=== PATIENT | female | born 1945 | race Caucasian/White ===

== ENCOUNTER 2024-03-04 22:36 | Emergency (ER) | payer MEDICARE, SELFPAY ==
[2024-03-04 22:37] VITALS: BP 171/76; PULSE 102; RESP 16; TEMP 36.3; O2SAT 100
[2024-03-04 23:14] LABS: Basophils Absolute Auto 0.1 K/mm3 (0.0-0.1); Basophils Percent Auto 0.5 % (0.2-1.2); Eosinophils Absolute Auto 0.2 K/mm3 (0-0.3); Eosinophils Percent Auto 1.4 % (0-4.4); Hematocrit 39.4 % (37.0-47.0); Hemoglobin 12.2 g/dL (12.0-15.0); Immature Granulocyte Absolute 0.04 K/mm3 (0.00-0.031); Immature Granulocyte Percent A 0.3 % (0-0.5); Lymphocytes Absolute Auto 5.63 K/mm3 (0.9-3.2); Lymphocytes Percent Auto 42.9 % (18.3-44.2); Mean Corpuscular Hemoglobin 28.1 pg (26-34); Mean Corpuscular Volume 90.8 fl (80-100); Mean Platelet Volume 10.9 fl (7.4-10.4); Monocytes Percent Auto 7.4 % (2.6-8.5); Neutrophils Absolute Auto 6.2 K/mm3 (1.3-6.7); Neutrophils Percent Auto 47.5 % (45.5-73.1); Platelet Count Result 229 k/mm3 (150-375); Red Blood Count 4.34 M/mm3 (4.2-5.4); Red Cell Distribution Width 14.3 % (11.5-14.5); White Blood Count 13.1 K/mm3 (4.5-10.0)
[2024-03-04 23:24] LABS: Alanine Aminotransferase 16 U/L (6-35); Albumin Level 4.3 g/dL (3.5-5.1); Alkaline Phosphatase 134 U/L (38-126); Anion Gap 5 mmol/L (4-12); Aspartate Amino Transferase 18 U/L (14-36); Bilirubin,Total 0.9 mg/dL (0.2-1.3); Blood Urea Nitrogen 21 mg/dL (7-17); Calcium 9.5 mg/dL (8.4-10.2); Carbon Dioxide 30 mmol/L (22-30); Chloride 103 mmol/L (98-107); Estimated CRCL calculation 43 ml/min; Estimated Glomerular Filt Rate 54; Glucose 107 mg/dL (65-110); Sodium 138 mmol/L (137-145)
[2024-03-04 23:25] LABS: INR 1.6; Prothrombin Time 20.2 Seconds (11.1-14.7)
[2024-03-04 23:26] LABS: Partial Thromboplastin Time 38.5 Seconds (22.3-36.8)
[2024-03-04 23:54] VITALS: BP 144/81; PULSE 53; TEMP 36.5; O2SAT 100
[2024-03-05 00:26] LABS: Bacteria Urine 3+ /hpf; Bilirubin Urine Negative (Negative); Blood Urine 3+ (Negative); Color Urine Orange (Yellow); Glucose Urine UA Negative (Negative); Ketones Urine Negative (Negative); Leukocyte Esterase Ur 3+ LEU/UL (Negative); Need Manual Microscopic Reviewed; Nitrate Urine Negative (Negative); Non Pathogenic Casts 0-2; Protein Urine 2+ mg/dL (Negative); RBC Urine >100 /hpf (0-2); Specific Grav Ur 1.015 (1.001-1.035); Squamous Epithelial Cell Urine None Seen /hpf (Few); WBC Urine >100 /hpf (0-3)
[2024-03-05 00:29] LABS: Appearance Urine Cloudy (Clear)
[2024-03-05 00:30] LABS: Add Urine Microscopic? YES
--- NOTE | 2024-03-05 03:19 | ED.GENADULT ---
HPI - General Adult General Chief complaint: Urogenital-Female Stated complaint: hematuria Time Seen by Provider: 03/05/24 01:50 History of Present Illness HPI narrative: This is a 78-year-old female presenting with urinary symptoms. Patient said earlier today she started developed pain on urination and noticed that she was having blood in her urine. She was concerned that she may have a UTI. She denies fevers chills nausea vomiting diarrhea or flank pain. She does take Xarelto for atrial fibrillation. Patient has not had any issue initiating a stream. No suprapubic fullness. Per the triage notes there was concern for rectal bleeding but when I spoke to the patient she says she is not concerned about rectal bleeding all. She states the blood is coming from her urine. Related Data Home Medications Medication Instructions Recorded Confirmed atorvastatin 80 mg tablet 80 mg PO DAILY 03/29/22 09/20/23 furosemide 20 mg tablet 10 mg PO QAM 03/29/22 09/20/23 losartan 50 mg tablet 50 mg PO DAILY 03/29/22 09/20/23 oxybutynin chloride 10 mg 10 mg PO DAILY 03/29/22 09/20/23 tablet,extended release 24 hr rivaroxaban 20 mg tablet (Xarelto) 20 mg PO DAILY 03/29/22 09/20/23 metoprolol tartrate 25 mg tablet 25 mg PO BID 09/19/23 09/20/23 Allergies Allergy/AdvReac Type Severity Reaction Status Date / Time Sulfa (Sulfonamide Allergy Unknown RASH AND Verified 09/19/23 13:49 Antibiotics) HIVES [facility] Family History Family History Father Diabetes mellitus Hypertension Mother Depression Hypertension Sibling Diabetes mellitus Social History Social History Smoking status: Never smoker Alcohol intake: never Substance use: never Exam Narrative: APPEARANCE: No apparent distress. Head: atraumatic. EYES: EOMI, NOSE: Atraumatic NECK: Trachea midline RESPIRATORY: No increased rate of breathing CARDIOVASCULAR: RRR, ABDOMINAL: Non-distended Soft nontender no guarding or rebound no CVA tenderness, rectal exam showed brown stool with no evidence of bleeding, melena Excedrin. MUSCULOSKELETAl: No obvious deformities NEURO: Alert. Moving 4/4 extremities SKIN:: Warm, dry. Normal color PSYCHIATRIC: Normal affect Course Vital Signs Vital signs: Vital Signs Temperature 97.4 F L 03/04/24 22:37 Pulse Rate 102 H 03/04/24 22:37 Respiratory Rate 16 03/04/24 22:37 Blood Pressure 171/76 H 03/04/24 22:37 Pulse Oximetry 100 03/04/24 22:37 Oxygen Delivery Room Air 03/04/24 22:37 Temperature 97.7 F 03/04/24 23:54 Pulse Rate 53 L 03/04/24 23:54 Respiratory Rate 16 03/04/24 22:37 Blood Pressure 144/81 H 03/04/24 23:54 Pulse Oximetry 100 03/04/24 23:54 Oxygen Delivery Room Air 03/04/24 22:37 Medical Decision Making MDM Narrative Medical decision making narrative: -Course: 78-year-old female presenting with urinary symptoms and hematuria. Urine consistent with infection. No evidence of urinary retention/ pyelonephritis. Rectal exam did not have any evidence of bleeding. patient given dose of ceftriaxone here in the emergency department. We discussed admission versus discharge the patient is comfortable going home and taking antibiotics. Discharged on cefdinir. Given return precautions for worsening infection and urinary retention. Primary care follow-up -DDX includes but is not limited to: UTI, pyelo, hematuria, rectal bleeding -Co-morbidities complicating care: AFib on anticoagulation -Independent interpretation of studies: white count 13.1. Hemoglobin 12.2. Urine indicative infection. Culture sent. -Interventions: 1 g ceftriaxone -Shared decision making / Disposition: discharge -RX cefdinir 300 mg bid x 7 days Vital Signs Vital Signs: Vital Signs Temperature 97.4 F L 03/04/24 22:37 Pulse Rate 102 H 03/04/24 22:37 Respiratory Rate 16
[2024-03-05] MEDS: cefTRIAXone 1 GM VIAL IM (03:42)
[2024-03-05 03:49] VITALS: BP 128/56; PULSE 64; RESP 15; O2SAT 100
== END 2024-03-05 03:49 | disposition home or self-care (01) ==
PROVIDERS: Emergency Provider Emergency Medicine; PCP Internal Medicine
DX: N39.0 Urinary tract infection, site not specified (principal); I48.91 Unspecified atrial fibrillation; Z79.01 Long term (current) use of anticoagulants
CPT/HCPCS: 36415; 80053; 81001; 85025; 85610; 85730; 86850; 86900; 86901; 87077; 87086; 87088; 87186; 96372; 99283; J0696

== ENCOUNTER 2024-06-03 16:32 | Emergency (ER) | payer MEDICARE, SELFPAY ==
[2024-06-03] VITALS (37 sets, daily range): BP systolic 103–128; BP diastolic 52–103; PULSE 79–121; RESP 9–53; TEMP 36.6; O2SAT 83–100
--- NOTE | ~2024-06-03 | CT_ITS ---
EXAMINATION: CT brain wo con DATE: 06/03/2024 19:00 INDICATION: Altered mental status . TECHNIQUE: Computed tomography (CT) of the head was performed without intravenous contrast. The mA wa s adjusted according to patient size. Iterative reconstruction technique was employed. The dose-lengt h product was 529.67 mGy-cm. COMPARISON: None. FINDINGS: 5.6 x 4.1 x 2.4 cm hyperdense intracranial hemorrhage in the right inferior frontal lobe with signifi cant surrounding vasogenic edema. Effacement of the left lateral ventricle. 4.7 cm right to left midline shift. Uncal herniation. No acute ischemic infarct. Unremarkable dural venous sinus attenuation. No acute osseous abnormality. The aerated spaces are clear. Mild atrophy and chronic white matter change. Atherosclerotic intracranial calcification. Bilateral l ens replacements. Bilateral basal ganglia calcification. IMPRESSION: Right inferior frontal intraparenchymal hemorrhage measuring up to 5.6 cm, with significant surroundi ng vasogenic edema. Subfalcine and uncal herniation also noted. Comparison studies not available to assess for interval change. Hyperdense clot is typically with acu te hemorrhage, which would be consistent with a history of recent neurologic change. Results reported telephonically to Dr. Zimmerman by Dr. Mclean at 07:08 on 7:16 PM. Reviewed, dictated and finalized at location K. IMPRESSION: Right inferior frontal intraparenchymal hemorrhage measuring up to 5.6 cm, with significant surrounding vasogenic edema. Subfalcine and uncal herniation also noted. Comparison studies not available to assess for interval change. Hyperdense clot is typically with acute hemorrhage, which would be consistent with a history o f recent neurologic change. Results reported telephonically to Dr. Zimmerman by Dr. Mclean at 07:08 on 7:16 PM.
--- NOTE | ~2024-06-03 | XR_ITS ---
EXAMINATION: XR chest 1V portable Exam Date/Time: 06/03/2024 18:39 CDT HISTORY: Altered mental status Comparison: None. RESULT: Lines, tubes, and devices: None. Lungs and pleura: Senescent/emphysematous change, otherwise clear. Cardiomediastinal silhouette: Right atrial enlargement. Otherwise within normal limits. Other: No acute osseous or upper abdominal finding. IMPRESSION: No acute cardiopulmonary process. Reviewed, dictated and finalized at location K.
--- NOTE | 2024-06-03 18:28 | ECG_ITS ---
Test Date: 2024-06-03 19:51:29 Measurements Intervals [place] Rate: 96 P: 0 OR: 0 QRS: 44 QRSD: 81 T: 30 QT: 324 QTc: 410 Interpretive Statements ATRIAL FIBRILLATION No previous ECG available for comparison Electronically Signed On 06-04-2024 17:07:56 CDT by Markus Roberts M.D.
[2024-06-03 19:33] LABS: Basophils Absolute Auto 0.1 K/mm3 (0.0-0.1); Basophils Percent Auto 0.6 % (0.2-1.2); Eosinophils Absolute Auto 0.1 K/mm3 (0-0.3); Eosinophils Percent Auto 1.3 % (0-4.4); Immature Granulocyte Absolute 0.05 K/mm3 (0.00-0.031); Immature Granulocyte Percent A 0.5 % (0-0.5); Lymphocytes Absolute Auto 4.32 K/mm3 (0.9-3.2); Lymphocytes Percent Auto 39.4 % (18.3-44.2); Mean Corpuscular HGB Conc 31.6 g/dl (32-36); Mean Corpuscular Hemoglobin 28.6 pg (26-34); Mean Corpuscular Volume 90.5 fl (80-100); Mean Platelet Volume 10.1 fl (7.4-10.4); Monocytes Absolute Auto 0.8 K/mm3 (0.1-0.6); Monocytes Percent Auto 7.6 % (2.6-8.5); Neutrophils Absolute Auto 5.6 K/mm3 (1.3-6.7); Neutrophils Percent Auto 50.6 % (45.5-73.1); Platelet Count Result 316 k/mm3 (150-375); Red Cell Distribution Width 14.1 % (11.5-14.5)
[2024-06-03 19:44] LABS: Alanine Aminotransferase 21 U/L (6-35); Albumin Level 3.9 g/dL (3.5-5.1); Alkaline Phosphatase 112 U/L (38-126); Anion Gap 12 mmol/L (4-12); Aspartate Amino Transferase 16 U/L (14-36); Bilirubin,Total 1.1 mg/dL (0.2-1.3); Blood Urea Nitrogen 11 mg/dL (7-17); Calcium 9.6 mg/dL (8.4-10.2); Carbon Dioxide 22 mmol/L (22-30); Chloride 105 mmol/L (98-107); Estimated CRCL calculation 51 ml/min; Estimated Glomerular Filt Rate > 60; Glucose 128 mg/dL (65-110); Potassium 3.8 mmol/L (3.4-5.0); Sodium 139 mmol/L (137-145)
[2024-06-03 19:45] LABS: Acetaminophen < 10 ug/mL (10-30); Ammonia < 9 umol/L (9-30); Ethanol < 10 mg/dL (<10); Salicylate < 1.0 mg/dL (2-20)
--- NOTE | 2024-06-03 19:45 | ED.AMS ---
HPI - Altered Mental Status General Chief Complaint: Altered Mental Status Stated Complaint: AMS Time Seen by Provider: 06/03/24 18:08 Source: patient and family Mode of arrival: EMS Limitations: dementia History of Present Illness HPI narrative: History limited by patient's baseline dementia. 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 Per nursing staff EMS reported the patient had worsening memory and increased confusion over the past several days as described by family. Staff at the patient's facility reportedly not concerned for focal deficit. The patient is not sure why she is here. She has no acute complaints at this time. Related Data Home Medications Medication Instructions Recorded Confirmed losartan 50 mg tablet 50 mg PO DAILY 03/29/22 05/24/24 acetaminophen 325 mg tablet 650 mg PO Q6H PRN Pain 05/24/24 05/24/24 amlodipine 10 mg tablet 10 mg PO DAILY 05/24/24 05/24/24 dicyclomine 10 mg capsule 10 mg PO TID 05/24/24 05/24/24 metoprolol succinate 100 mg 100 mg PO DAILY 05/24/24 05/24/24 tablet,extended release 24 hr mineral oil-hydrophil petrolat 1 applic topical BID 05/24/24 05/24/24 topical ointment (petrolatum topical ointment) nitrofurantoin 100 mg PO Q12H 05/24/24 05/24/24 monohydrate/macrocrystals 100 mg capsule (Macrobid) omeprazole magnesium 20 mg 20 mg PO DAILY 05/24/24 05/24/24 capsule,delayed release (Acid Water Pump Installer (omeprazole)) pantoprazole 40 mg tablet,delayed 40 mg PO QAM 05/24/24 05/24/24 release (Protonix) polyethylene glycol 3350 17 gram 17 g PO DAILY PRN Constipation 05/24/24 05/24/24 oral powder packet (Miralax) primidone 50 mg tablet 50 mg PO Q12H 05/24/24 05/24/24 simvastatin 10 mg tablet 10 mg PO HS 05/24/24 05/24/24 sodium chloride 0.65 % nasal spray 3 spray intranasal TID 05/24/24 05/24/24 aerosol (Saline Nasal Mist) Allergies Allergy/AdvReac Type Severity Reaction Status Date / Time Sulfa (Sulfonamide Allergy Unknown RASH AND Verified 05/24/24 16:40 Antibiotics) HIVES Review of Systems Review of Systems: All systems reviewed & are unremarkable except as noted in HPI and below PMFSH Past Medical History Medical History A-fib Hypertension Intracranial hemorrhage Tremor, unspecified UTI (urinary tract infection) Surgical History Surgical History No significant past surgical history Family History Family History Father Diabetes mellitus Hypertension Mother Depression Hypertension Sibling Diabetes mellitus Social History Social History Smoking status: Never smoker Alcohol intake: current Drinks per week: 0 Substance use: never Substance use type: does not use Do You Feel Safe in your Home?: Yes Lack of Transportation: No Lack of Food: Never True Current Housing: I Have Housing Concerned About Future Housing: No Difficulty Paying Gas/Electric Bills: No Difficulty Paying for Meds: No Currently Unemployed: No Education: Associate Degree Difficulty w/ Childcare or Family Care: No Spiritual care concerns: No Exam Narrative: GENERAL: Well-developed, well-nourished, and in no acute distress. HEAD: Normocephalic, atraumatic. EYES: PERRLA and EOMI. ENT: Nares clear, no rhinorrhea or epistaxis. Mucous membranes moist. Oropharynx without tonsillar hypertrophy exudate or other lesions. CHEST: Clear to auscultation. No respiratory distress. No wheezes rales or rhonchi HEART: Regular rate and rhythm. No murmur heard. Normal peripheral pulses. ABDOMEN: Soft, nontender, nondistended, normal active bowel sounds. EXTREMITIES: Normal range of motion. No edema. SKIN: Warm
[2024-06-03 19:47] LABS: Add Urine Microscopic? YES; Appearance Urine Cloudy (Clear); Bacteria Urine 4+ /hpf; Bilirubin Urine Negative (Negative); Blood Urine Negative (Negative); Color Urine Yellow (Yellow); Glucose Urine UA Negative (Negative); Ketones Urine Negative (Negative); Leukocyte Esterase Ur 3+ LEU/UL (Negative); Need Manual Microscopic Reviewed; Nitrate Urine Positive (Negative); Non Pathogenic Casts 0-2; Protein Urine Negative (Negative); Specific Grav Ur 1.004 (1.001-1.035); Squamous Epithelial Cell Urine Few /hpf (Few); Urobilinogen Urine 0.2 mg/dL (<2.0); WBC Clumps Urine Present /HPF; WBC Urine 51-100 /hpf (0-3)
[2024-06-03 19:55] LABS: Amphetamine Screen Urine Negative (Negative); Barbiturate Screen Urine Negative (Negative); Benzodiazepines Screen Urine Negative (Negative); Cannabinoid Screen Urine Negative (Negative); Cocaine Screen Urine Negative (Negative); Methadone Screen Urine Negative (Negative); Opiate Screen Urine Negative (Negative); Phencyclidine Screen Urine Negative (Negative)
[2024-06-03 19:56] LABS: Troponin I < 0.012 ng/mL (0.000-0.034)
--- NOTE | 2024-06-03 21:27 | PC.NURSE ---
Patient report called to [place] [facility] and given to Emilia. discussed imaging results as well as treatment plan.
[2024-06-04] VITALS (11 sets, daily range): PULSE 72–88; RESP 14–23; O2SAT 98
--- NOTE | 2024-06-04 02:17 | PC.NURSE ---
PRATIK Charge Nurse Emilia - updated that ems is here to send patient back.
== END 2024-06-04 02:18 ==
PROVIDERS: Emergency Provider Preventive Medicine Aerospace Medicine; PCP Internal Medicine
DX: I62.9 Nontraumatic intracranial hemorrhage, unspecified (principal); N39.0 Urinary tract infection, site not specified; F03.90 Unspecified dementia, unspecified severity, without behavioral disturbance, psychotic disturbance, mood disturbance, and anxiety; I48.91 Unspecified atrial fibrillation; I10 Essential (primary) hypertension; Z86.73 Personal history of transient ischemic attack (TIA), and cerebral infarction without residual deficits
CPT/HCPCS: 36415; 70450; 71045; 80053; 80307; 81001; 82140; 84484; 85025; 87077; 87086; 87088; 87186; 93005; 99284